=== PATIENT | male | born 1945 | race Caucasian/White ===

== ENCOUNTER 2016-11-30 11:58 | Day surgery (SDC) | payer MEDICARE, OTHER ==
[~2016-11-30] VITALS: Ht 193 cm; Wt 106.1 kg
--- NOTE | ~2016-11-30 | EEP ---
Pacemaker Implant Report Demographics Patient Name YULISSA HENRIUQEZ Gender Male Patient Number [id number] Race Visit Number [id number] Ethnicity [employer] ID Room Number Accession Number [id number] Height 193.04 cm Date of 1945 Weight 106.59 kg Age 71 year(s) BSA 2.37 m Referring Physician Andre Correia BMI 28.6 kg/m Implanting Physician King Pete Will MD Date of Study 11/30/2016 Assisting Physician Performing Physician King Pete Will MD The procedure was explained in detail to the patient. Risks, complications and alternative treatments were reviewed. Written consent was obtained. Medications reviewed with patient prior to procedure. Conclusions Implantable Device Summary Summary Successful dual chamber generator exchange. Recommendations Follow up with [facility] provider in 5-7days. Complications No complications. Procedure Procedure Type Pacemaker:Generator Exchange, PM Generator exchange w/2 leads , Miscellaneous Indications Generator REYMUNDO and Sick sinus syndrome. Procedure Description The patient was brought to the cath laboratory in a fasting state. A baseline ECG was recorded. Surface ECG leads, intracardiac electrograms, blood pressure measurements, and pulse oximety signals were monitored. A grounding pad was placed on the back. A defibrillator was configured to deliver shocks via self-adhesive anterior posterior defibrillator pads. Conscious sedation was administered. The upper chest area was prepped and draped in a sterile fashion. Lidocaine 2% with bupivicaine was was infused underneath the old scar. An incision was made over the old scar and blunt dissection down to the area of the capsule surrounding the pacemaker was performed. The capsule was incised sharply and dissected free. The pulse generator was removed. The lead(s) were then disconnected. The lead(s) were tested. The lead was then connected to the new pulse generator. The pocket was then flushed with normal saline. Hemostasis was obtained. The pulse generator was then placed into the pacemaker pocket. The pacemaker generator captured normally. The incision was closed. It was closed using 2-0 Vicryl for the deep and intermediate layer and 4-0 Vicryl for the subcuticular layer. A sterile dressing was applied. The patient tolerated the procedure well and was returned to the nursing unit in stable condition. Devices and Leads Devices + + +--------+ +------+ +---------+ !Identification!Action !Location!Device name!Serial!Implant !Comments ! ! ! ! ! !# !date ! ! + + +--------+ +------+ +---------+ !New implant !Implanted !Left !ESSENTIO ![id number]!11/30/2016! ! ! ! ! !MRI DR L111! ! ! ! + + +--------+ +------+ +---------+ Device Programming Bradycardia Zone +-------+--------+--------+--------+ + +------+--------+ !Pacing !Mode !Lower !Upper !Paced AV !Sensed AV !PVARP !VRP (ms)! !Mode !Switch !Rate !Rate !Interval !Interval !(ms) ! ! ! ! !(ppm) !(ppm) !(ms) !(ms) ! ! ! +-------+--------+--------+--------+ + +------+--------+ !DDDR !On !60 !130 !240 !210 !320 !250 ! +-------+--------+--------+--------+ + +------+--------+ Medical History Allergies - No known allergies:. Admission Data Admission Date: 11/30/2016 Admission Time: 11:58 Insurance Payors:Medicare. Hospital Status:Outpatient. Procedure Data Procedure Date:11/30/2016Start:14:23End:14:48 Fluoroscopy Time: 0:30 minutes.Fluoroscopy Dose: 5 mGy. Estimated blood loss:10 ml. Contrast Material - Isovue 370,10 ml. Procedure Medications Order and Administration + + +---------+---------+ !Time !Medication !Dosage !Route ! + + +---------+---------+ !11/30/2016 14:09 !Ancef !2 g !I.V. ! + + +---------+---------+ !11/30/2016 14:09 !Versed !2 mg !I.V. ! + + +---------+---------+ !11/30/2016 14:09 !Fentanyl !50 mcg !I.V. ! + + +---------+---------+ !11/30/2016 14:10 !Sodium Chloride !30 ml !I.V. ! + + +---------+---------+ !11/30/2016 14:20 !Fentanyl !50 mcg !I.V. ! + + +---------+---------+ !11/30/2016 14:22 !Oxygen !2 l/min !NC ! + + +---------+---------+ !11/30/2016 14:29 !Versed !1 mg !I.V. ! + + +---------+---------+ !11/30/2016 14:29 !Fentanyl !50 mcg !I.V. ! + + +---------+---------+ !11/30/2016 14:33 !Ancef !1 g !Pocket ! + + +---------+---------+ Discharge Data Discharge Date: 11/30/2016 Signatures
[2017-05-26] MEDS ORDERED: BETAPACE DPS120 MG PO (17:31)
[2017-05-26] MEDS ORDERED: COUMADIN4 MG PO (17:31)
[2017-05-26] MEDS ORDERED: CRESTOR40 MG PO (17:32)
[2017-05-26] MEDS ORDERED: DELTASONE DPS10 MG PO (17:32)
[2017-05-26] MEDS ORDERED: AMBIEN DPS10 MG PO (17:32)
[2017-05-26] MEDS ORDERED: PROVENTIL HFA6.7 GM IH (17:33)
[2017-05-26] MEDS ORDERED: LEVOTHYROXINE125 MCG PO (17:33)
[2017-05-26] MEDS ORDERED: STIOLTO RESPIMAT4 GM IH (17:33)
[2017-05-26] MEDS ORDERED: ARNUITY ELLIP200 MCG IH (17:33)
[2017-05-26] MEDS ORDERED: VIBRAMYCIN-DPS100 M2 PO (17:34)
[2017-05-26] MEDS ORDERED: BROVANA15 MCG/2 M IH (17:34)
== END 2016-11-30 16:09 | disposition home or self-care (01) ==
LOC: SSS 11:58
PROC: 0JPT0PZ Removal of Cardiac Rhythm Related Device from Trunk Subcutaneous Tissue and Fascia, Open Approach (ICD-10-PCS; principal; 2016-11-30)
PROC: 0JH606Z Insertion of Pacemaker, Dual Chamber into Chest Subcutaneous Tissue and Fascia, Open Approach (ICD-10-PCS; principal; 2016-11-30)
DX: Z45.010 Encounter for checking and testing of cardiac pacemaker pulse generator [battery] (principal); I49.5 Sick sinus syndrome; I10 Essential (primary) hypertension; E78.5 Hyperlipidemia, unspecified; I48.0 Paroxysmal atrial fibrillation; J44.9 Chronic obstructive pulmonary disease, unspecified; E03.9 Hypothyroidism, unspecified; Z79.01 Long term (current) use of anticoagulants; Z87.891 Personal history of nicotine dependence; Z90.49 Acquired absence of other specified parts of digestive tract; Z98.49 Cataract extraction status, unspecified eye; Z98.890 Other specified postprocedural states